=== PATIENT | male | born 1980 | race Caucasian/White ===

== ENCOUNTER 2024-03-27 10:05 | Emergency (ER) | payer OTHER ==
[~2024-03-27] VITALS: Ht 177.8 cm; Wt 97.1 kg
[2024-03-27] MEDS ORDERED: LORazepam 1 MG TAB PO SCH (10:30)
[2024-03-27] MEDS ORDERED: VENLAFAXINE HCL 75 MG CAPCR PO SCH (10:45)
[2024-03-27] MEDS ORDERED: DIAZEPAM5 MG PO (10:50)
[2024-03-27] MEDS ORDERED: OLANZAPINE10 MG PO (10:50)
[2024-03-27 10:51] LABS: BASOPHILS 0.4 % (0-2); EOSINOPHILS 0.1 % (0-6); HEMATOCRIT 42.5 % (35.0-50.0); HEMOGLOBIN 14.6 g/dL (12.0-18.0); LYMPHOCYTES 15.2 % (24-44); MCH 29.2 (27-36); MCHC 34.4 g/dl (30-36); MONOCYTES 8.2 % (0-12); NEUTROPHILS 76.1 % (39-80); PLATELET COUNT 333 K/uL (140-440); RDW 12.9 (10.5-15.0)
[2024-03-27] MEDS ORDERED: MIRTAZAPINE15 MG PO (10:51)
[2024-03-27] MEDS ORDERED: EFFEXOR XR37.5 MG PO (10:52)
[2024-03-27] MEDS ORDERED: EFFEXOR XR75 MG PO (10:52)
[2024-03-27] MEDS ORDERED: PROPRANOLOL HCL10 MG PO (10:52)
[2024-03-27 11:21] LABS: ACETAMINOPHEN 0 ug/mL (10-30); ALCOHOL, MEDICAL <3 ng/dL (<3); TSH, 3RD GENERATION 1.705 uIU/mL (0.358-3.740)
[2024-03-27] MEDS ORDERED: VENLAFAXINE HCL 75 MG CAPCR PO ONE (12:00)
[2024-03-27] MEDS ORDERED: VENLAFAXINE HCL 37.5 MG PO ONE (12:00)
--- NOTE | 2024-03-27 12:51 | EKG ---
[facility] [address] [facility] [place], [place] [address] Signed Normal sinus rhythm Nonspecific ST abnormality Abnormal ECG No previous ECGs available Confirmed by Noam Gonzales MD ([id number]) on 03/27/2024 12:51:24 PM Electronically Signed By: NOAM GONZALES MD 03/27/24 1251 PATIENT NAME: ANDI VENEGAS Electrocardiogram DATE OF : 76 PHYSICIAN: NOAM GONZALES MD REPORT #: [id number] REPORT IS CONFIDENTIAL AND NOT TO BE RELEASED WITHOUT AUTHORIZATION
[2024-03-27 13:51] LABS: ALBUMIN 4.7 g/dL (3.4-5.0); ALBUMIN/GLOBULIN RATIO 1.15 (1.1-2.4); ANION GAP 17.6 (7-21); BILIRUBIN, TOTAL 0.9 ng/dL (0.2-1.0); BUN/CREATININE RATIO 13.67 (6.0-28.6); CALCIUM 9.2 mg/dL (8.5-10.1); CREATININE, SERUM 1.17 mg/dL (0.70-1.30); POTASSIUM 3.6 mmol/L (3.5-5.1); PROTEIN, TOTAL 8.8 g/dL (6.4-8.2)
[2024-03-27 15:26] LABS: CORONAVIRUS COVID-19 AG NEGATIVE (NEGATIVE)
[2024-03-27] MEDS ORDERED: ATORVASTATIN 40 MG TAB PO SCH (17:00)
[2024-03-27 17:57] LABS: AMPHETAMINES, URINE NEGATIVE (NEGATIVE); BARBITURATES, URINE NEGATIVE (NEGATIVE); BENZODIAZEPINE, URINE POSITIVE (NEGATIVE); BUPRENORPHINE, URINE NEGATIVE (NEGATIVE); CANNABINOID, URINE POSITIVE (NEGATIVE); COCAINE, URINE NEGATIVE (NEGATIVE); ECSTASY, URINE NEGATIVE (NEGATIVE); FENTANYL, URINE NEGATIVE (NEGATIVE); METHADONE, URINE NEGATIVE (NEGATIVE); OPIATES, URINE NEGATIVE (NEGATIVE); OXYCODONE, URINE NEGATIVE (NEGATIVE); PHENCYCLIDINE, URINE NEGATIVE (NEGATIVE)
[2024-03-27] MEDS ORDERED: LORazepam 1 MG TAB PO PRN (21:00)
[2024-03-27] MEDS ORDERED: NICOTINE POLACRILEX 4 MG LOZENGE BUCCAL PRN (21:00)
[2024-03-27] MEDS ORDERED: MIRTAZAPINE 15 MG TAB PO SCH (21:00)
[2024-03-28] MEDS ORDERED: VENLAFAXINE HCL 75 MG CAPCR PO SCH ×2 (09:00)
[2024-03-28] MEDS ORDERED: VENLAFAXINE HCL 37.5 MG PO SCH (09:00)
[2024-03-28] MEDS ORDERED: PROPRANOLOL HCL 10 MG TAB PO SCH (09:00)
[2024-03-28] MEDS ORDERED: diazePAM 5 MG TAB PO SCH (09:00)
[2024-03-30] MEDS ORDERED: LACTOBACILLUS RHAMNOSUS GG 1 EACH CAP PO SCH (10:49)
[2024-03-31 17:25] LABS: BILIRUBIN, URINE POSITIVE (negative); BLOOD/HGB, URINE NEGATIVE (Negative); KETONE, URINE SMALL (Negative); LEUK ESTERASE, URINE NEGATIVE (negative); NITRITE, URINE NEGATIVE (negative)
[2024-03-31 17:32] LABS: BACTERIA, URINE NONE SEEN /hpf (negative); CASTS, URINE NONE SEEN \\lpf; COLLECTION TYPE, URINE CLEAN CATCH; CRYSTALS, URINE NONE SEEN (0-1+); EPITHELIAL CELLS, URINE SQUAMOUS 1+ /lpf (0-1+); RED BLOOD CELLS, URINE 0-1 /hpf (0-5); REFLEX CULTURE, URINE No (No); WHITE BLOOD CELLS, URINE 0-1 /HPF (0-5)
[2024-04-01] MEDS ORDERED: diphenhydrAMINE HCL 50 MG CAP PO ONE (15:15)
[2024-04-01 16:18] VITALS: BP 115/94
== END 2024-04-01 16:18 ==
LOC: ED 10:05
PROVIDERS: Emergency Medicine
DX: F25.9 Schizoaffective disorder, unspecified (principal); F23 Brief psychotic disorder; R45.850 Homicidal ideations; F12.10 Cannabis abuse, uncomplicated; Z88.0 Allergy status to penicillin; Z79.899 Other long term (current) drug therapy
CPT/HCPCS: 36415; 80053; 80307; 81001; 84443; 85025; 93005; 93010; 99285; A9270-GY; G0480; Q0163